=== PATIENT | male | born 2005 | race Two or more races ===

== ENCOUNTER 2025-01-10 18:06 | Emergency (ER) | payer OTHER ==
[~2025-01-10] VITALS: Ht 170.2 cm; Wt 70.8 kg
[2025-01-10] MEDS ORDERED: AZITHROMYCIN 500 MG TABLET PO STA (18:29)
[2025-01-10 19:34] LABS: HEMATOCRIT 44.8 % (39.0-48.0); HEMOGLOBIN 15.1 g/dL (13-16.00); MEAN CELL VOLUME 88.7 fL (80.0-100.00); MEAN CORPUSCULAR HEMOGLOBIN 29.8 pg (27.00-32.0); MEAN CORPUSCULAR HGB CONC 33.6 g/dl (32.0-36.0); PLATELET COUNT 292 K/uL (150-450); RED BLOOD COUNT 5.06 M/uL (4.00-6.00); RED CELL DISTRIBUTION WIDTH 13.7 % (11.5-14.5)
[2025-01-10 19:35] LABS: URINE APPEARANCE Clear; URINE BILIRRUBIN Negative (NEGATIVE); URINE BLOOD Negative; URINE COLOR Yellow; URINE GLUCOSE Negative (NEGATIVE); URINE KETONE Negative (NEGATIVE); URINE LEUKOCYTE Negative; URINE NITRATE Negative; URINE PROTEIN Negative (NEGATIVE); URINE UROBILINOGEN 0.2 E.U./dl
[2025-01-10 19:37] LABS: URINE RBC 6.1 uL (0.0-20.8); URINE WBC 40.6 uL (0.0-23.2)
[2025-01-10 19:57] LABS: URINE BACTERIA 1.2 uL (0.0-1933); URINE EPITHELIAL CELLS 0.6 uL (0.0-38.8)
== END 2025-01-10 20:09 | disposition home or self-care (01) ==
LOC: ER 18:09
PROVIDERS: General Practice
DX: N34.2 Other urethritis (principal)

== ENCOUNTER 2025-03-09 18:02 | Emergency (ER) | payer OTHER ==
[~2025-03-09] VITALS: Ht 170.2 cm; Wt 68.0 kg
[2025-03-09] MEDS ORDERED: CLINDAMYCIN PHOSPHATE 150 MG/ML (300mg) IM STA (19:56)
[2025-03-09] MEDS ORDERED: CLINDAMYCIN PHOSPHATE 150 MG/ML (300mg) ONE (19:58)
== END 2025-03-09 20:16 | disposition home or self-care (01) ==
LOC: ER 18:19
DX: L73.9 Follicular disorder, unspecified (principal)